=== PATIENT | male | born 1995 | race Caucasian/White ===

== ENCOUNTER 2017-03-14 12:41 | Emergency (ER) | payer BC, OTHER ==
[~2017-03-14] VITALS: Ht 182.9 cm; Wt 75.0 kg
[~2017-03-14 12:41] MED LIST: KPP/750 PO
[2017-03-14 12:42] VITALS: TEMP 36.5; Ht 182.9 cm; Wt 75.0 kg
[2017-03-14] MEDS ORDERED: XYLOCAINE 1%/SOD BICARB 20 ML VIAL INFIL ONE (13:30)
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
[2017-03-14] MEDS ORDERED: LIDOCAINE/EPINEPHRINE 1% 20 ML VIAL ONE (14:01)
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
[2017-03-14] MEDS ORDERED: AMOX875T PO (14:55)
[2017-03-14] MEDS ORDERED: CYCL10TA6 PO (14:56)
[2017-03-14] MEDS ORDERED: AMOXICILLIN/CLAVULANATE TAB 875 MG TAB PO ONE (15:00)
[2017-03-14 15:37] VITALS: BP 136/87; PULSE 95; O2SAT 98
== END 2017-03-14 15:33 | disposition home or self-care (01) ==
LOC: EDBD 12:41 → C.EDC 12:42
DX: S01.01XA Laceration without foreign body of scalp, initial encounter (principal); S01.311A Laceration without foreign body of right ear, initial encounter; S60.511A Abrasion of right hand, initial encounter; V49.40XA Driver injured in collision with unspecified motor vehicles in traffic accident, initial encounter; Y92.488 Other paved roadways as the place of occurrence of the external cause; G40.909 Epilepsy, unspecified, not intractable, without status epilepticus; D64.9 Anemia, unspecified; D70.9 Neutropenia, unspecified; D69.6 Thrombocytopenia, unspecified